=== PATIENT | female | born 1950 | race Caucasian/White ===

== ENCOUNTER → 2016-11-19 | Outpatient (CLI) | payer MEDICARE ==
[~2016-11-19] MED LIST: AMLO2.5T PO; ATEN50TA PO; D-20TAB3 PO; DULO1CAP3 PO; FERR325T8 PO; FOLI400T PO; GABA300C5 PO; OXYC-395 PO; OXYC1CAP8 PO; PRAV40TA2 PO; VALS1TAB65 PO
[2016-11-19 13:34] LABS: AUTOMATED NEUTROPHIL # 4.1 TH/MM3 (1.8-7.7); BASOPHIL % 0.6 % (0.0-2.0); EOSINOPHIL % 0.1 % (0.0-4.0); HEMATOCRIT 36.9 % (35.0-46.0); HEMO FLAGS DIFF FINAL; LYMPH % 24.4 % (9.0-44.0); LYMPHOCYTE # 1.5 TH/MM3 (1.0-4.8); MEAN CELL VOLUME 88.9 FL (80.0-100.0); MEAN CORPUSCULAR HEMOGLOBIN 28.8 PG (27.0-34.0); MEAN CORPUSCULAR HGB CONC 32.4 % (32.0-36.0); MONO % 7.6 % (0.0-8.0); NEUT % 67.3 % (16.0-70.0); PLATELET COUNT 227 TH/MM3 (150-450); RED BLOOD COUNT 4.15 MIL/MM3 (4.00-5.30); RED CELL DISTRIBUTION WIDTH 14.9 % (11.6-17.2); WHITE BLOOD COUNT 6.1 TH/MM3 (4.0-11.0)
[2016-11-19 13:41] LABS: APTT (PATIENT) 28.2 SEC (24.3-30.1); PROTHROMBIN TIME - PATIENT 10.6 SEC (9.8-11.6)
[2016-11-19 13:56] LABS: ANION GAP 3 MEQ/L (5-15); AST (GOT) 10 U/L (15-37); BICARBONATE 31.1 MEQ/L (21.0-32.0); BLOOD UREA NITROGEN 12 MG/DL (7-18); CHLORIDE 105 MEQ/L (98-107); GLOMERULAR FILTRATION RATE 75 ML/MIN (>89); GLUCOSE,FASTING 91 MG/DL (74-99); POTASSIUM 4.6 MEQ/L (3.5-5.1); SODIUM (NA) 139 MEQ/L (136-145)
[2016-11-19 13:57] LABS: ALT (GPT) 16 U/L (10-53)
[2016-11-19 14:00] LABS: ALKALINE PHOSPHATASE 92 U/L (45-117); TOTAL BILIRUBIN ADULT 0.4 MG/DL (0.2-1.0)
--- NOTE | 2016-11-19 14:23 | RADRPT ---
EXAM DATE/TIME: 11/19/2016 13:54 [place] COMPARISON: No previous studies available for comparison. INDICATIONS : Evaluate for pneumonia, pneumothorax or communicable disease. Pre-op mass removal. MEDICAL HISTORY : Hypertension. Hypercholesterolemia. SURGICAL HISTORY : BILATERAL SHOULDERS ENCOUNTER: Initial ACUITY: 1 day PAIN SCORE: 0/10 LOCATION: Bilateral chest FINDINGS: The heart is normal in size. The mediastinal contours are within normal limits. The lungs are clear. The patient is post bilateral shoulder arthroplasty. There are degenerative changes within the spine. CONCLUSION: 1. No acute cardiopulmonary findings. Velasquez Agarwal MD on November 19, 2016 at 14:21 Board Certified Radiologist. This report was verified electronically.
--- NOTE | 2016-11-20 11:34 | EKG ---
Date Performed: 11/19/2016 Time Performed: 13:13:16 PTAGE: 65 years EKG: SINUS BRADYCARDIA BORDERLINE ECG NO PREVIOUS TRACING DOCTOR: Ramu Martines Interpretating Date/Time 11/20/2016 11:30:24
== END ==
LOC: CPRE 12:29
PROVIDERS: ATTEND Obstetrics & Gynecology Gynecologic Oncology
DX: Z01.812 Encounter for preprocedural laboratory examination (principal); Z01.811 Encounter for preprocedural respiratory examination; Z01.810 Encounter for preprocedural cardiovascular examination; R19.09 Other intra-abdominal and pelvic swelling, mass and lump; R94.31 Abnormal electrocardiogram [ECG] [EKG]
CPT/HCPCS: 36415; 71020; 80053; 85025; 85610; 85730; 93005

== ENCOUNTER 2016-11-30 05:41 | Observation (INO) | payer MEDICARE ==
[~2016-11-30] VITALS: Ht 162.6 cm; Wt 100.4 kg
[~2016-11-30 05:41] MED LIST changes: -OXYC-395 PO
[2016-11-30] MEDS ORDERED: INSULIN HUMAN REGULAR 1,000 UNITS/10 ML VIAL SQ PRN (06:15)
[2016-11-30] MEDS ORDERED: ceFAZolin 2 GM PREMIX 50 ML IV SCH (06:15)
[2016-11-30] MEDS ORDERED: METOPROLOL TARTRATE 25 MG TAB PO PRN (06:15)
[2016-11-30] MEDS ORDERED: CHLORHEXIDINE GLUCONATE 2 % 1 PACK (2 CLOTHS) TOPICAL PRN (06:15)
[2016-11-30] MEDS ORDERED: SODIUM CHLORID 0.9% 500 ML IV PRN (06:15)
[2016-11-30] MEDS ORDERED: POVIDONE IODINE 5% (ANTISEPSIS KIT) 4 APPLICATIONS EACH NARE PRN (06:15)
[2016-11-30] MEDS ORDERED: LACTATED RINGER'S 1000 ML IV PRN (06:15)
[2016-11-30] MEDS ORDERED: LIDOCAINE 2%/EPINEPHrine PF 1:200,000 20ML SDV ONE (06:32)
[2016-11-30] MEDS ORDERED: SUGAMMADEX SODIUM 200 MG/2 ML VIAL IV PUSH ONE ×2 (07:05)
[2016-11-30] MEDS ORDERED: ACETAMINOPHEN 1000 MG/100 ML 100 ML IV ONE (07:05)
[2016-11-30] MEDS ORDERED: ARTIFICIAL TEARS OPTH OINT 3.5 APPLIC/3.5 GM TUBO ONE (07:05)
[2016-11-30] MEDS ORDERED: FAMOTIDINE 20 MG/2 ML VIAL ONE (07:05)
[2016-11-30] MEDS ORDERED: HEPARIN SODIUM - SQ 10,000 UNITS/ML VIAL SQ SCH (07:30)
[2016-11-30] MEDS ORDERED: ceFAZolin INJ 1,000 MG VIAL ONE (11:29)
[2016-11-30] MEDS ORDERED: KETOROLAC TROMETHAMINE 30 MG/ML (IVP) VIAL IV PUSH ONE (12:00)
[2016-11-30] MEDS ORDERED: MIDAZOLAM HCL 2 MG/2 ML VIAL IV ONE (12:00)
[2016-11-30] MEDS ORDERED: VECURONIUM BROMIDE 20 MG VIAL IV ONE (12:00)
[2016-11-30] MEDS ORDERED: DEXAMETHASONE SOD PHOS 4 MG/ML VIAL IV ONE (12:00)
[2016-11-30] MEDS ORDERED: STERILE WATER FOR INJECTION 20 ML VIAL IV ONE (12:00)
[2016-11-30] MEDS ORDERED: LIDOCAINE HCL 1% PF 5 ML AMPULE OTHER ONE (12:00)
[2016-11-30] MEDS ORDERED: SODIUM CHLORIDE 0.9% 20 ML VIAL IV ONE (12:00)
[2016-11-30] MEDS ORDERED: ONDANSETRON HCL 4 MG/2 ML VIAL IV PUSH ONE (12:00)
[2016-11-30] MEDS ORDERED: ROCURONIUM INJ 50 MG/5 ML SYRINGE IV PUSH ONE (12:00)
[2016-11-30] MEDS ORDERED: PROPOFOL 200 MG/20 ML AMP IV ONE (12:00)
[2016-11-30] MEDS ORDERED: NORMOSOL R INJ 1,000 ML IV ONE (12:00)
[2016-11-30] MEDS ORDERED: METHYLENE BLUE 100 MG/10 ML VIAL ONE (12:00)
[2016-11-30] MEDS ORDERED: PHENYLEPH/NS 1000 MCG/10 ML SYR IV ONE (12:00)
[2016-11-30] MEDS ORDERED: ePHEDrine/NS 25 MG/5 ML SYR IV ONE (12:00)
[2016-11-30] MEDS ORDERED: ONDANSETRON HCL 4 MG/2 ML VIAL IVP PRN (12:15)
[2016-11-30] MEDS ORDERED: SODIUM CHLORIDE 0.9% FLUSH 10 ML FLUSH IV FLUSH PRN (12:15)
[2016-11-30] MEDS ORDERED: diphenhydrAMINE HCL 25 MG CAP PO PRN (12:15)
[2016-11-30] MEDS ORDERED: PILL SPLITTER OTHER PRN (12:30)
[2016-11-30] MEDS ORDERED: DO NOT ADM ANY ANTICOAGULANT DRUGS PRN (12:45)
[2016-11-30] MEDS: D5-1/2 NS + KCL 20 MEQ INJ 1,000 ML IV SCH ×2 (13:09→22:48)
[2016-11-30] MEDS ORDERED: *morphine SULFATE 8 MG/ML PERIprocedure ONLY ONE (14:08)
[2016-11-30 14:30] VITALS: BP 94/41; PULSE 60; RESP 16; TEMP 97.2; O2SAT 95
[2016-11-30 15:30] VITALS: BP 115/58
[2016-11-30] MEDS: HYDROmorphone HCL PF 1 MG/ML VIAL IVP PRN ×2 (15:30→19:55)
--- NOTE | 2016-11-30 15:45 | PD.OP ---
Operative Report Date of Surgery: Nov 30, 2016 Preoperative Diagnosis: (1) Pelvic mass in female Postoperative Diagnosis: (1) Pelvic mass in female Procedure: Cystoscopy Anesthesia: General Surgeon: Gallito Cooney Special Loan Officer(s): None Operation and Findings: Indication for procedure: Consult intraoperatively to perform cystoscopic evaluation as the patient was noted to have a markedly thickened bladder during her robot-assisted laparoscopic hysterectomy. Procedure in detail: Patient was already under general anesthesia and in the dorsal lithotomy position upon my arrival to the operating room suite. I proceeded with cystoscopic evaluation utilizing the rigid cystoscope with the 30 lens and the 21 Malian sheath. The urethra was patent without obstruction. Passage of the cystoscope within the urinary bladder revealed both right and left ureteral orifices to be in correct anatomic position effluxing clear yellow urine. The bladder itself was markedly trabeculated with cellule and multiple small diverticula. I carefully inspected the lumen of each of the diverticula for any masses and none was seen. Further inspection of urinary bladder fail to demonstrate any bladder masses, fistula formation or calculi. Urinary bladder was emptied of irrigant fluid and the cystoscope was withdrawn. A 16 Malian three-way Blum catheter was then replaced with 10 cc instilled by the balloon. This completes urologic surgery portion of combined procedures on this patient. Gallito Cooney MD Nov 30, 2016 15:45
[2016-11-30 16:12] VITALS: BP 113/54; PULSE 70; RESP 21; TEMP 97.3; O2SAT 96
--- NOTE | 2016-11-30 16:36 | PD.ONC.PN ---
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, states pain is controlled no n/v still sleepy Objective Data Date Time Temp Pulse Resp B/P (MAP) Pulse Ox O2 Delivery O2 Flow Rate FiO2 11/30/16 15:30 115/58 (77) 11/30/16 14:30 97.2 60 16 94/41 (58) 95 11/30/16 14:00 69 24 99/52 (68) 96 Nasal Cannula 3 11/30/16 13:45 63 14 111/56 (74) 94 Nasal Cannula 3 11/30/16 13:30 65 17 105/59 (74) 92 Nasal Cannula 3 11/30/16 13:15 67 19 112/56 (74) 92 Nasal Cannula 3 11/30/16 13:00 66 21 115/58 (77) 93 Nasal Cannula 3 11/30/16 12:45 97.2 71 15 105/79 (88) 99 Nasal Cannula 3 11/30/16 06:37 98.0 62 16 129/59 (82) 96 11/30/16 11/30/16 11/30/16 07:00 15:00 23:00 Intake Total 50 ml 1770 ml Output Total 800 ml Balance 50 ml 970 ml Administered Medications Medications (Trade) Dose Ordered Sig/Glenn Route PRN Reason Start Time Stop Time Status Last Admin Dose Admin Povidone Iodine (Betadine 5% Antisepsis Kit) 1 applic GAS WELL PUMPER PRN EACH NARE SEE LABEL COMMENTS 11/30/16 06:15 12/03/16 06:14 11/30/16 06:38 Chlorhexidine Gluconate (Chlorhexidine 2% Cloth) 3 pack GAS WELL PUMPER PRN TOPICAL SEE LABEL COMMENTS 11/30/16 06:15 12/03/16 06:14 11/30/16 06:00 Heparin Sodium (Porcine) (Heparin Inj) 5,000 units GAS WELL PUMPER SQ 11/30/16 07:30 12/01/16 07:29 11/30/16 06:34 Cefazolin Sodium/ Dextrose 50 ml @ 100 mls/hr GAS WELL PUMPER IV 11/30/16 06:15 12/01/16 06:14 11/30/16 06:41 Potassium Chloride/Dextrose/ Sod Cl 1,000 ml @ 100 mls/hr Q10H IV 11/30/16 12:00 11/30/16 13:09 Hydromorphone HCl (Dilaudid Pf Inj) 1 mg Q3H PRN IVP PAIN SCALE 6 TO 10 11/30/16 12:15 11/30/16 15:30 Objective Remarks GENERAL: Well-nourished, well-developed patient. SKIN: Warm and dry. HEAD: Normocephalic. with mild facial swelling EYES: No scleral icterus. No injection or drainage. NECK: Supple, CARDIOVASCULAR: Regular rate and rhythm without murmurs. RESPIRATORY: Breath sounds equal bilaterally. No accessory muscle use. GASTROINTESTINAL: Abdomen soft, non-tender, nondistended. SS are c/d/i EXTREMITIES: No cyanosis, or edema. teds and scds MUSCULOSKELETAL: Adequate muscle tone. NEUROLOGICAL: No obvious focal deficit.sleepy, awakens to voice Assessment/Plan Problem List: (1) Pelvic mass in female ICD Codes: R19.00 - Intra-abdominal and pelvic swelling, mass and lump, unspecified site Status: Resolved Plan: s/p RA lap hyst with BSO and resection of pelvic mass post op orders in chart Percocet for pain ADAT OOB to chair D/C garo in am and anticipate d/c home tomorrow Kerry Oconnell [facility] Nov 30, 2016 16:36
[2016-11-30 17:33] VITALS: O2SAT 96
[2016-11-30] MEDS: SODIUM CHLORIDE 0.9% FLUSH 10 ML FLUSH IV FLUSH SCH (19:55)
[2016-11-30 20:00] VITALS: BP 128/69; PULSE 68; RESP 17; TEMP 96; O2SAT 95
[2016-11-30 20:57] VITALS: BP 109/57; PULSE 70
[2016-11-30] MEDS ORDERED: amLODIPine BESYLATE 5 MG TAB PO SCH (21:00)
[2016-11-30] MEDS ORDERED: PRAVASTATIN SOD 40 MG TAB PO SCH (21:00)
[2016-11-30] MEDS: DULoxetine HCl DR 60 MG CAP PO SCH (21:00)
[2016-11-30] MEDS: VALSARTAN 160 MG TAB PO SCH (21:00)
[2016-12-01] VITALS: BP 111/59; PULSE 66; RESP 17; TEMP 96.4; O2SAT 95
[2016-12-01] MEDS: HYDROmorphone HCL PF 1 MG/ML VIAL IVP PRN (00:40)
[2016-12-01 04:00] VITALS: BP 98/56; PULSE 70; RESP 17; TEMP 96.4; O2SAT 95
[2016-12-01] MEDS ORDERED: OXYC-395 PO (07:03)
[2016-12-01 08:00] VITALS: BP 102/58; PULSE 69; RESP 18; TEMP 97.4; O2SAT 94
[2016-12-01] MEDS: ATENOLOL 50 MG TAB PO SCH ×2 (09:00→09:52)
[2016-12-01] MEDS: SODIUM CHLORIDE 0.9% FLUSH 10 ML FLUSH IV FLUSH SCH (09:00)
[2016-12-01] MEDS: DULoxetine HCl DR 60 MG CAP PO SCH (09:42)
[2016-12-01] MEDS: VALSARTAN 160 MG TAB PO SCH (09:42)
--- NOTE | 2016-12-01 10:02 | MP ---
cc: GALLITO COONEY MD, JASON M.D. MOLPUS, KELLY L. MD CORTEZ, STEPHEN J. M.D. DATE OF SURGERY 12/01/2016 PREOPERATIVE DIAGNOSES 1. Pelvic mass. 2. Postmenopausal bleeding. 3. Thickened bladder wall. POSTOPERATIVE DIAGNOSES 1. Left ovarian cystadenoma. 2. Polypoid endometrial mass consistent with malignancy. 3. Thickened bladder wall with diverticula. PROCEDURE 1. Examination under anesthesia with removal of endometrial polyp. 2. Fractional dilation and curettage. 3. Robotic-assisted laparoscopic hysterectomy, bilateral salpingo-oophorectomy. 4. Left pelvic lymph node biopsies. SURGEON Reina Castillo MD BANQUET SET UP PERSON Reeves first leveler. ANESTHESIA General endotracheal anesthesia ESTIMATED BLOOD LOSS 200 cc. IV FLUIDS 1700 cc. URINE OUTPUT [address] Gallito Cooney, Urology HISTORY This is a 65-year-old female found on exam and imaging to have a 9-10 cm predominantly cystic mass in the pelvis thought to be arising from the ovary. She also reports a single episode of postmenopausal bleeding that lasted a couple of days but at times it was quite heavy. Ultrasound of the pelvis described the endometrial stripe was 3 mm. Recent Pap smear was normal. She was seen in the STATISTICAL CLERK Oncology office where options were discussed. She is in favor of definitive surgical management. She is seen again in the preop holding area. She is in favor of having both tubes and ovaries removed. She would like to preserve her uterus if and possible. The pros and cons of this were again discussed. I explained with postmenopausal bleeding further evaluation is warranted to ensure that there is no abnormality and we discussed, fractional dilation and curettage biopsies to ensure that the uterus was okay to be left in situ. Otherwise if indicated hysterectomy would be performed. She expressed good understanding and agrees as well. FINDINGS On exam under anesthesia, polypoid mass is seen prolapsing through the dilated cervix which is a new finding. It was approximately 2 cm in diameter and this was removed with ring forcep by rotating until it was removed from its mobile base and fractional dilation and curettage was performed which revealed a moderate amount of tissue. 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 It had some squamous cell characteristics on frozen. In discussion with pathology it was explained that the polyp was attached from the endometrium and the curettings revealed tissue from the endometrium. The cervix grossly appeared normal and recent Pap smear was normal. Furthermore on exam the uterus and cervix were mobile, in fact it prolapsed down to the level of the introitus with traction. There was no parametrial mass or nodularity. No overt neoplastic change on the cervix itself on visible or palpable inspection. Within the peritoneal cavity the left ovary was replaced by a 10 cm mass that had minimal adhesions, otherwise relatively mobile. The right tube and ovary were normal in appearance. The uterus was enlarged at the fundus slightly. It sounded to a depth of 9 cm and the bladder was densely adherent to the lower uterine segment and cervix and the bladder wall itself appeared diffusely thickened from external inspection as it was redundant and often in the way of dissection. Despite Blum drainage it was more prominent than a usual bladder. PROCEDURE The patient was taken to the operating room, placed in dorsal lithotomy position. After general endotracheal anesthesia was administered, time-out was undertaken. She was identified by sight recognition and hospital ID bracelet and the proposed procedure was reviewed and confirmed. She was carefully positioned in padded Sudhir stirrups. Her arms were padded and secured to the sides. Additional padding was placed under each shoulder and her arms and shoulders were padded in across-chest, over the shoulder fashion, taking special care given her prior shoulder surgery to keep this padded securely and immobilized as was discussed in the preop holding area and as she agreed would be acceptable and not pose any problems to her. She was prepped and draped in sterile fashion, placed in lithotomy position. Speculum exam was performed. When the findings were as described above the polypoid mass was removed and sent for frozen section analysis. Fractional dilation and curettage with endocervical and endometrial sampling were obtained, all sent for frozen section. All specimens had poorly differentiated carcinoma present. A small V-Care was inserted and secured in the usual fashion as there is narrowing at the vaginal apex and Blum catheter placed in the bladder. She was returned to low lithotomy position and change of sterile gloves was undertaken. We confirmed that an orogastric tube was in the stomach on suction with manual elevation of the abdominal wall. On direct laparoscopic visualization, a 5-mm cannula was introduced into the left upper quadrant. Carbon dioxide gas was insufflated and atraumatic entry was confirmed. Under laparoscopic visualization a 12-mm cannula was placed in the midline above the umbilicus, 8-mm cannula placed in the right upper quadrant and left lateral quadrant and the original 5 we exchanged for a 8-mm cannula. Peritoneal washings were obtained for cytology. The anatomy was explored with findings as described above. She was placed in steep Trendelenburg position. The bowel, which was somewhat edematous and appeared inadequately prepped, was folded back on its mesenteric root to the extent possible. The colon was diffusely prominent but no overt mass, lesion or other abnormality detected and three Ray-Trace sponges were placed around the root of the small bowel mesentery. Robotic system was brought into the operative field and attached in the usual fashion. Monopolar scissors, fenestrated bipolar forceps and ProGrasp manipulators were placed in arms #1, 2 and 3 respectively and I took my place at the surgeon's console. The right round ligament was isolated, cauterized and transected. The anterior and posterior leaves of the broad ligament were opened. The right ureter was identified, the right infundibulopelvic ligament was isolated, cauterized at the level of the pelvic brim and transected. The posterior peritoneum was opened along the right side of the uterus and cervix and the right vesicouterine peritoneum was dissected off the lower uterine segment and cervix and although there was scarring, thickening of tissue and difficulty identifying the tissue plane during this dissection, the tissue plane was isolated with further dissection. The bladder was retracted and the right uterine vessels were skeletonized and cauterized. Attention was directed toward the left side. The left round ligament was isolated, cauterized and transected. The anterior and posterior leaves of the broad ligament were opened. The left ureter was identified, left infundibulopelvic ligament was isolated. The infundibulopelvic ligament was isolated to the level of the pelvic brim. Instruments #1 and 3 were exchanged for needle drivers as 0 Vicryl suture was brought into placed. It was tied securely circumferentially around the infundibulopelvic ligament near the level of the pelvic brim. It was tied securely x 3 and then the distal portion of the infundibulopelvic ligament was cauterized as the instruments were exchanged to regional instruments and infundibulopelvic ligament was transected. The posterior peritoneum was opened along the left side of the uterus and cervix. The left vesicouterine peritoneum was dissected off the lower uterine segment and cervix, again with thickening, some scar tissue and difficulty isolating the plane which was eventually found, dissected and the bladder was retracted well below the level of the cervix. The left uterine vessels were skeletonized, cauterized and transected as were the cardinal, paracervical and uterosacral ligaments. Attention was redirected to the right side where now the uterine right uterine vessels were transected. The cardinal, paracervical and uterosacral ligaments were isolated, cauterized and transected in a stepwise fashion. Circumferential colpotomy was performed the cervix from the upper vagina. The specimen was withdrawn transvaginally which included the uterus and cervix, right tube and ovary. There was some difficulty delivering the left tube and ovary which was still attached to the uterus so I left the surgeon's console to help deliver the specimen and the specimen was brought out with counter-traction and using a grasping forceps. The mass was brought out through the introitus where it was ruptured and drained externally which facilitated completion of delivery with no intraperitoneal spill. A pneumooccluder balloon was placed in the vagina to maintain pneumoperitoneum and I returned to the surgeon's console. Instruments #1 and 3 were exchanged for needle drivers as 0 Vicryl suture was introduced. The vaginal cuff was closed starting at the left corner, full-thickness closure including the posterior peritoneum and edge of the uterosacral ligament, tied via instrument tie. The closure was held on countertraction as a running full-thickness continuous closure was carried across the vaginal apex to the contralateral corner where it was similarly fixed and secured, tied via instrument tie. The needle was cut and removed. The integrity of the bladder was confirmed by visual inspection; it was also filled with saline dyed with methylene blue. There was a good margin between the bladder edge and the vaginal cuff suture line. There were no thin areas. No blue visible through the bladder, certainly no extravasation of dye. Good peristalsis of ureters bilaterally and the bladder was drained. The pathology came back that showed the point of origin of the polypoid mass in the endometrium. If there was residual tumor in that region it was minimal and showed evidence of minimal invasion, possibly only superficial tumor. No overt residual tumor or deep invasion was detected. Visual inspection of the pelvic and periaortic lymph nodes on palpation revealed no obvious enlargement except for two prominent lymph nodes on the left side, one slightly prominent on the external iliac artery and one more prominent in the obturator space and so the obturator space, paravesical and pararectal spaces were opened on the left side with bipolar cautery and sharp dissection. These two lymph nodes were removed from the surrounding tissue and were placed in the right pericolic gutter on Ray-Trace sponge for later retrieval. An additional continued visual inspection and palpation did not reveal any additional enlarged lymph nodes and caution was given regarding extensive dissection given her history of Crohn's disease and/or ulcerative colitis, history of autoimmune disease and difficulty healing. In the past it was felt that further dissection would be associated with morbidity that exceeded benefit. Accordingly, it was felt that all reasonable surgical objectives had been completed. The robotic instruments were removed. The robotic system was disengaged from the operative field and I reentered the bedside under sterile condition. Given the persistent diffuse thickening of the bladder and concerns about abnormality including possibility of neoplasm in the bladder, Dr. Gallito Cooney was consulted from Urology who performed cystoscopic evaluation. Please see his note for his procedure and findings. EndoCatch bag was introduced and the lymph nodes were retrieved and retracted through the 12-mm cannula and then each of the three Ray-Trace sponges were removed individually, inspected, noted to be removed in their entirety. The pelvis and abdomen were thoroughly irrigated. All sites were hemostatic. There were no remaining foreign objects in the peritoneal cavity, preliminary counts were correct and Shalini hemostatic agent was placed in the lymph node basin and the vaginal cuff. The 12-mm fascial defect was closed with 0 Vicryl sutures. With a needle pass apparatus in interrupted fashion these were tied securely which rendered the fascia completely airtight and hemostatic. The remaining cannulas were withdrawn. Carbon dioxide gas was removed. 3-0 Vicryl subcutaneous, 0 Vicryl subcuticular and Steri-Strips were used to close these incisions. She was returned to dorsal lithotomy position. Pelvic exam confirmed the vaginal cuff was well supported and hemostatic. There were no lacerations, but there was diffuse irritation to the mucosa with minimal oozing and the remainder of the Shalini hemostatic agent was placed in the vaginal canal with complete hemostasis. She was returned to dorsal supine position and was pending reversal of anesthesia when I left the operating room to precede her to the Post-Anesthesia Care Unit. MD ARELY Mcdonough /7:08 AM /9:22 AM
[2016-12-01 12:00] VITALS: BP 104/52; PULSE 66; RESP 18; TEMP 98.9; O2SAT 92
[2016-12-01 12:03] LABS: AUTOMATED NEUTROPHIL # 5.8 TH/MM3 (1.8-7.7); BASOPHIL % 0.3 % (0.0-2.0); HEMATOCRIT 35.9 % (35.0-46.0); HEMO FLAGS DIFF FINAL; LYMPHOCYTE # 0.5 TH/MM3 (1.0-4.8); MEAN CORPUSCULAR HEMOGLOBIN 29.2 PG (27.0-34.0); MEAN CORPUSCULAR HGB CONC 32.4 % (32.0-36.0); MONO % 6.7 % (0.0-8.0); PLATELET COUNT 194 TH/MM3 (150-450); RED BLOOD COUNT 3.98 MIL/MM3 (4.00-5.30); RED CELL DISTRIBUTION WIDTH 14.7 % (11.6-17.2); WHITE BLOOD COUNT 6.9 TH/MM3 (4.0-11.0)
[2016-12-01 12:23] LABS: BICARBONATE 27.2 MEQ/L (21.0-32.0); POTASSIUM 3.9 MEQ/L (3.5-5.1)
--- NOTE | 2016-12-02 08:12 | MD ---
cc: DARIA COONEY MD,JOLANTA ESTRADA,RAJ JAMA M.D. ADMISSION DATE: 11/30/2016 DISCHARGE DATE: 12/01/2016 PROCEDURE 11/30/2016. A robotic assisted laparoscopic hysterectomy, bilateral salpingo-oophorectomy, left pelvic lymph node biopsies, cystoscopy (by Dr. Cooney). DIAGNOSIS 1. Pelvic mass 2. Endometrial cancer 3. Thickened bladder wall HOSPITAL COURSE She did well in the early postop period, hemodynamically stable, adequate pain control, tolerating oral intake. In's and out's [id number]. Labs pending at this time. PHYSICAL EXAMINATION Afebrile, pulse 66-70, respirations 17-21, blood pressure 98-128/54-69, O2 saturations greater than or equal to 95%. LUNGS: Clear except for mild basilar rales. CARDIOVASCULAR: Regular rate and rhythm. ABDOMEN: Soft. Incisions clean and dry. 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 EXTREMITIES: Nontender. SCD's intact. ASSESSMENT Postop day #1 doing well in early postop period. Findings, preliminary pathology and steps taken were discussed and reviewed. Activities and restrictions were covered, questions were answered, she expressed a good understanding. PLAN Anticipate she will be ready for discharge to home. She is to resume her prior medications. She will have oxycodone for pain. She is to contact our office to schedule follow up in two weeks and our office number is again made available and she can contact us should she have any questions or problems between now and the time of followup. MD SARABJIT Mcdonough/TA /7:05 AM /8:08 AM
== END 2016-12-01 17:24 | disposition home or self-care (01) ==
LOC: HSDC 05:41 → HSDI 12:12 → HOCA 14:15
PROVIDERS: ADMIT Obstetrics & Gynecology Gynecologic Oncology; ATTEND Obstetrics & Gynecology Gynecologic Oncology
DX: C54.1 Malignant neoplasm of endometrium (principal); D27.1 Benign neoplasm of left ovary; D25.0 Submucous leiomyoma of uterus; N95.0 Postmenopausal bleeding; N32.3 Diverticulum of bladder; N84.0 Polyp of corpus uteri; K50.90 Crohn's disease, unspecified, without complications; M35.9 Systemic involvement of connective tissue, unspecified
CPT/HCPCS: 00940; 38572; 52000; 58571; 80048; 85025; 86850; 86900; 86901; 88112; 88305; 88307; 88331; 94150; 96361; 96374; 96376; G0378; J0131; J0690; J1100; J1170; J1644; J1885; J2250; J2270; J2370; J2405; J3010; J3480; J7120